=== PATIENT | male | born 1980 | race Native Hawaiian/Other Pacific Islander ===

== ENCOUNTER 2020-03-27 18:29 | Emergency (ER) | payer SELFPAY ==
[2020-03-27] MEDS ORDERED: IBUPROFEN 800 MG TAB PO ONE (18:48)
[2020-03-27] MEDS ORDERED: HYDROcodone/ACETAMINOPHEN 5-325 MG TAB PO ONE (18:48)
--- NOTE | 2020-03-27 19:40 | XRay Report ---
LEFT RIB SERIES 5 VIEWS INDICATION: fall 10 feet. COMPARISON: No relevant prior imaging study available. FINDINGS: No acute pulmonary or pleural findings. No displaced left-sided rib fractures are seen. IMPRESSION: 1. No acute findings. RIGHT KNEE 3 VIEWS INDICATION: fall 10 feet. COMPARISON: No relevant prior imaging study available. FINDINGS: No acute fracture, dislocation, or joint effusion is seen. There is prepatellar soft tissue swelling. No soft tissue gas or radiodense foreign bodies. IMPRESSION: 1. Prepatellar soft tissue swelling. AP PELVIS INDICATION: fall 10 feet. COMPARISON: No relevant prior imaging study available. FINDINGS: There is subtle cortical irregularity along the superior aspect of the left pubic bone. This could be artifact, correlate with point tenderness. Bones are otherwise unremarkable. No degenerative changes . There is no SI joint diastases. IMPRESSION: 1. Subtle cortical irregularity along the superior aspect of the left pubic bone. Minimally displaced fracture could have this appearance, correlate with point tenderness. RIGHT HUMERUS 2 VIEWS INDICATION: fall 10 feet. COMPARISON: No relevant prior imaging study available. FINDINGS: No acute fracture or dislocation. No foreign bodies or soft tissue gas. IMPRESSION: 1. No acute findings. Signer Name: Joseph Lopez MD Signed: 03/27/2020 7:36 PM Workstation Name: [id number]
--- NOTE | 2020-03-27 20:26 | Emergency Department Report ---
ED Fall HPI - General Chief Complaint: Fall Stated Complaint: FELL FROM TREE Time Seen by Provider: 03/27/20 18:47 Source: patient Mode of arrival: Wheelchair - History of Present Illness Initial Comments: Patient is a 39-year-old male who was on a ladder and was approximately 6 feet up when he lost balance and fell. Patient fell on his left side. He has pain on the left ribs and left pelvic region. He also is complaining of some mild discomfort in the right humerus and his right knee. Patient has a few scrapes and bruises. He denies hitting his head or losing consciousness. Patient also states he has not had any neck pain. Patient was ambulatory. - Related Data Previous Rx's Medication Instructions Recorded Last Taken Type HYDROcodone/APAP 5-325 [[place] 1 each PO Q6HR PRN #14 tablet 03/27/20 Unknown Rx 5/325] Ketorolac [Toradol] 10 mg PO Q6H PRN #12 tablet 03/27/20 Unknown Rx methOCARBAMOL [Robaxin TAB] 500 mg PO Q6H PRN #14 tablet 03/27/20 Unknown Rx Allergies Allergy/AdvReac Type Severity Reaction Status Date / Time No Known Allergies Allergy Unverified 03/27/20 18:31 ED Review of Systems ROS: Stated complaint: FELL FROM TREE Other details as noted in HPI Comment: All other systems reviewed and negative ED Past Medical Hx - Past Medical History Previous Medical History?: No - Surgical History Past Surgical History?: No - Social History Smoking Status: Never Smoker Substance Use Type: None - Medications Home Medications: Home Medications Medication Instructions Recorded Confirmed Last Taken Type HYDROcodone/APAP 5-325 [[place] 1 each PO Q6HR PRN #14 tablet 03/27/20 Unknown Rx 5/325] Ketorolac [Toradol] 10 mg PO Q6H PRN #12 tablet 03/27/20 Unknown Rx methOCARBAMOL [Robaxin TAB] 500 mg PO Q6H PRN #14 tablet 03/27/20 Unknown Rx ED Physical Exam - General Limitations: No Limitations General appearance: alert, in no apparent distress - Head Head exam: Present: atraumatic, normocephalic - Eye Eye exam: Present: normal appearance - ENT ENT exam: Present: mucous membranes moist - Neck Neck exam: Present: normal inspection - Respiratory Respiratory exam: Present: normal lung sounds bilaterally, chest wall tenderness (left sided ). Absent: respiratory distress, wheezes, rales, rhonchi - Cardiovascular Cardiovascular Exam: Present: regular rate, normal rhythm, normal heart sounds. Absent: systolic murmur, diastolic murmur, rubs, gallop - GI/Abdominal GI/Abdominal exam: Present: soft, normal bowel sounds. Absent: distended, tenderness, guarding, rebound - Rectal Rectal exam: Present: deferred - Extremities Exam Extremities exam: Present: normal inspection, other (Patient with mild discomfort with palpation of the left inguinal region and the left iliac crest region.) - Back Exam Back exam: Present: normal inspection - Neurological Exam Neurological exam: Present: alert, oriented X3 - Psychiatric Psychiatric exam: Present: normal affect, normal mood - Skin Skin exam: Present: warm, dry, intact, normal color. Absent: rash ED Course Vital Signs 03/27/20 03/27/20 18:33 19:57 Temperature 98.6 F Pulse Rate 67 71 Respiratory 18 18 Rate Blood Pressure 108/57 107/52 [Right] O2 Sat by Pulse 97 98 Oximetry ED Medical Decision Making - Radiology Data LEFT RIB SERIES 5 VIEWS INDICATION: fall 10 feet. COMPARISON: No relevant prior imaging study available. FINDINGS: No acute pulmonary or pleural findings. No displaced left-sided rib fractures are seen. IMPRESSION: 1. No acute findings. RIGHT KNEE 3 VIEWS INDICATION: fall 10 feet. COMPARISON: No relevant prior imaging study available. FINDINGS: No acute fracture, dislocation, or joint effusion is seen. There is prepatellar soft tissue swelling. No soft tissue gas or radiodense foreign bodies. IMPRESSION: 1. Prepatellar soft tissue swelling AP PELVIS INDICATION: fall 10 feet. COMPARISON: No relevant prior imaging study available. FINDINGS: There is subtle cortical irregularity along the superior aspect of the left pubic bone. This could be artifact, correlate with point tenderness. Bones are otherwise unremarkable. No degenerative changes. There is no SI joint diastases. IMPRESSION: 1. Subtle cortical irregularity along the superior aspect of the left pubic bone. Minimally displaced fracture could have this appearance, correlate with point tenderness. RIGHT HUMERUS 2 VIEWS INDICATION: fall 10 feet. COMPARISON: No relevant prior imaging study available. FINDINGS: No acute fracture or dislocation. No foreign bodies or soft tissue gas. IMPRESSION: 1. No acute findings. Signer Name: Joseph Lopez MD Signed: 03/27/2020 7:36 PM Workstation Name: [id number] - Medical Decision Making Patient given the results of his x-rays and the patient is stable for discharge Critical care attestation.: If time is entered above; I have spent that time in minutes in the direct care of this critically ill patient, excluding procedure time. ED Disposition Clinical Impression: Musculoskeletal pain Fall Qualifiers: Encounter type: initial encounter Qualified Code(s): W19.XXXA - Unspecified fall, initial encounter Rib contusion Qualifiers: Encounter type: initial encounter Laterality: left Qualified Code(s): S20.212A - Contusion of left front wall of thorax, initial encounter Pelvic avulsion fracture Qualifiers: Encounter type: initial encounter Pelvic bone location: ischium Fracture type: closed Fracture alignment: nondisplaced Laterality: left Qualified Code(s): S32.615A - Nondisplaced avulsion fracture of left ischium, initial encounter for closed fracture Disposition: DC-01 TO HOME OR SELFCARE Is pt being admited?: No Does the pt Need Aspirin: No Condition: Stable Instructions: Pelvic Avulsion Fractures in Adults (ED), Musculoskeletal Pain (ED), RICE Therapy (ED) Referrals: NATHANIEL HANLEY MD [Staff Physician] - 3-5 Days Time of Disposition: 20:29 Print Language: ARMENIAN
[2020-03-27 20:59] VITALS: BP 94/64
== END 2020-03-27 20:54 | disposition home or self-care (01) ==
LOC: ED 18:29
DX: S20.212A Contusion of left front wall of thorax, initial encounter (principal); S32.61 Avulsion fracture of ischium; M79.18 Myalgia, other site; X58.XXXA Exposure to other specified factors, initial encounter; Y93.89 Activity, other specified; Y92.89 Other specified places as the place of occurrence of the external cause; Y99.8 Other external cause status
CPT/HCPCS: 72170; 99283